=== PATIENT | female | born 1995 | race Hispanic/Latino ===

== ENCOUNTER 2018-01-31 08:22 | Emergency (ER) | payer OTHER ==
[2018-01-31] MEDS ORDERED: Acetaminophen 325 MG TAB ONE (09:07)
[2018-01-31] MEDS ORDERED: Acetaminophen 500 MG TAB ONE (09:07)
--- NOTE | 2018-01-31 09:30 | RAD ---
THREE VIEWS CERVICAL SPINE: Date: 01-31-18 History: Trauma. Patient complains of back and neck pain. 12 weeks . FINDINGS: C1 to the cervicothoracic junction is seen on the lateral view. There is straightening of the normal cervical lordotic curvature. Vertebral body heights and intervertebral disc spaces are within normal limits. No fracture or subluxation is seen involving the cervical spine. The prevertebral soft tissue s are within normal limits. IMPRESSION: 1. Straightening of the normal cervical lordotic curvature which may be related to muscle spasm or po sitioning. 2. No fracture or subluxation seen involving the cervical spine on provided images. POS: [facility]
== END 2018-01-31 10:21 | disposition home or self-care (01) ==
LOC: ERS 08:22
DX: O9A.211 Injury, poisoning and certain other consequences of external causes complicating pregnancy, first trimester (principal); S16.1XXA Strain of muscle, fascia and tendon at neck level, initial encounter; O99.511 Diseases of the respiratory system complicating pregnancy, first trimester; J45.909 Unspecified asthma, uncomplicated; Z3A.12 12 weeks gestation of pregnancy; V43.52XA Car driver injured in collision with other type car in traffic accident, initial encounter
CPT/HCPCS: 36415; 72040; 86900; 86901; 94640